=== PATIENT | female | born 1980 | race Hispanic/Latino ===

== ENCOUNTER 2017-07-17 09:32 | Emergency (ER) | payer MEDICAID, MEDICARE ==
--- NOTE | 2017-07-17 10:16 | XRay Report ---
ROUTINE CHEST, TWO VIEWS: HISTORY: Shortness of breath. The trachea, heart, mediastinal contour, lung le and bony thorax are unremarkable. IMPRESSION: Unremarkable chest x-ray.
[2017-07-17 10:18] LABS: Basophils % (Auto) 1.1 % (0.0-1.8); Eosinophils % (Auto) 1.3 % (0.0-4.3); Hemoglobin 11.5 gm/dl (10.1-14.3); Mean Corpuscular HGB Conc 32 % (30-34); Mean Corpuscular Volume 80 fl (79-97); Platelet Count 423 K/mm3 (140-440); Red Blood Count 4.48 M/mm3 (3.65-5.03); Red Cell Distribution Width 16.5 % (13.2-15.2); White Blood Count 10.8 K/mm3 (4.5-11.0)
[2017-07-17 10:22] LABS: Mean Corpuscular Hemoglobin 26 pg (28-32)
[2017-07-17 10:24] LABS: Anion Gap 20 mmol/L; BUN/Creatinine Ratio 24; Blood Urea Nitrogen 19 mg/dL (7-17); Calcium 9.3 mg/dL (8.4-10.2); Carbon Dioxide 22 mmol/L (22-30); Chloride 101.3 mmol/L (98-107); Glucose 88 mg/dL (65-100); Potassium 4.1 mmol/L (3.6-5.0); Sodium 139 mmol/L (137-145)
[2017-07-17 19:50] VITALS: BP 126/84
--- NOTE | 2017-07-17 20:52 | Emergency Department Report ---
ED General Adult HPI - General Chief complaint: Dyspnea/Respdistress Stated complaint: SOB Time Seen by Provider: 07/17/17 20:34 Source: patient, RN notes reviewed Mode of arrival: Ambulatory Limitations: No Limitations - History of Present Illness Initial comments: This is a 37-year-old female, the patient is previously unknown to this provider. The patient endorses no chronic medical issues and no chronic psychiatric issues. She presents to the ER with a complaint of discoloration in her skin, and shortness of breath. The skin discoloration has been present for one week. It is constant and painless, and is not having exacerbating or relieving factors. The shortness of breath has been present for a few days. It is painless. There is no leg pain, there is no leg swelling, no relationships greater than 4 hours, no recent hospital admissions, the patient endorses that she is not , and does not take breath control tablets. No fevers or chills, no chest pain, no abdominal pain, no homicidality or suicidality. -: Gradual Severity scale (0 -10): 0 Consistency: constant Improves with: none Worsens with: none Associated Symptoms: shortness of breath - Related Data Home Medications Medication Instructions Recorded Confirmed Last Taken No Known Home Medications [No 07/17/17 07/17/17 Unknown Reported Home Medications] Allergies Allergy/AdvReac Type Severity Reaction Status Date / Time haloperidol [From Haldol] Allergy Unknown Verified 07/17/17 09:39 Sulfa (Sulfonamide Allergy Shortness Verified 07/17/17 09:39 Antibiotics) of Breath ED Review of Systems ROS: Stated complaint: SOB Other details as noted in HPI Constitutional: malaise Eyes: denies: vision change ENT: denies: epistaxis Respiratory: shortness of breath Cardiovascular: denies: chest pain Gastrointestinal: denies: abdominal pain Genitourinary: denies: dysuria Musculoskeletal: arthralgia Skin: lesions Neurological: weakness Psychiatric: anxiety ED Past Medical Hx - Past Medical History Previous Medical History?: No - Social History Smoking Status: Never Smoker Substance Use Type: None - Medications Home Medications: Home Medications Medication Instructions Recorded Confirmed Last Taken Type No Known Home Medications [No 07/17/17 07/17/17 Unknown History Reported Home Medications] ED Physical Exam - General Limitations: No Limitations, Other (visual acuity intact to finger counting, color perception, reading at a close distance) General appearance: alert, in no apparent distress - Head Head exam: Present: atraumatic, normocephalic - Eye Eye exam: Present: normal appearance, EOMI. Absent: nystagmus - ENT ENT exam: Present: normal exam, normal orophraynx, mucous membranes moist, normal external ear exam - Neck Neck exam: Present: normal inspection, full ROM. Absent: tenderness, meningismus - Respiratory Respiratory exam: Present: normal lung sounds bilaterally. Absent: respiratory distress, wheezes, rales, rhonchi, stridor, chest wall tenderness, accessory muscle use, decreased breath sounds, prolonged expiratory - Cardiovascular Cardiovascular Exam: Present: regular rate, normal rhythm, normal heart sounds. Absent: bradycardia, tachycardia, irregular rhythm, systolic murmur, diastolic murmur, rubs, gallop - GI/Abdominal GI/Abdominal exam: Present: soft, normal bowel sounds. Absent: distended, tenderness, guarding, rebound, rigid, pulsatile mass - Extremities Exam Extremities exam: Present: normal inspection, full ROM, normal capillary refill. Absent: pedal edema, joint swelling, calf tenderness - Back Exam Back exam: Present: normal inspection, full ROM. Absent: tenderness, CVA tenderness (R), CVA tenderness (L), muscle spasm, paraspinal tenderness, vertebral tenderness - Neurological Exam Neurological exam: Present: alert, oriented X3, normal gait, other (Extraocular movements intact. Tongue midline. No facial droop. Facial sensation intact to light touch in the V1, V2, V3 distribution bilaterally. 5 and 5 strength in 4 extremities.. Sensation is intact to light touch in 4 extremities.). Absent : motor sensory deficit - Psychiatric Psychiatric exam: Present: anxious, flat affect - Skin Skin exam: Present: warm, dry, intact, normal color. Absent: rash ED Course Vital Signs 07/17/17 07/17/17 07/17/17 09:39 19:49 19:50 Temperature 99.0 F 98.5 F Pulse Rate 95 H 80 Respiratory 16 18 18 Rate Blood Pressure 145/89 Blood Pressure 126/84 [Right] O2 Sat by Pulse 99 98 98 Oximetry - Reevaluation(s) Reevaluation #1: 07/17/17 20:52 The breast and chest exam are within normal limits with no tenderness, during the examination, this provider is escorted by nurse Melissa Medley Reevaluation #2: 07/17/17 20:53 Patient denies vaginal bleeding, denies hematemesis and bright red blood per rectum the patient reports that she is not . ED Medical Decision Making - Lab Data Result diagrams: 07/17/17 09:53 07/17/17 09:53 Vital Signs 07/17/17 07/17/17 07/17/17 09:39 19:49 19:50 Temperature 99.0 F 98.5 F Pulse Rate 95 H 80 Respiratory 16 18 18 Rate Blood Pressure 145/89 Blood Pressure 126/84 [Right] O2 Sat by Pulse 99 98 98 Oximetry Lab Results 07/17/17 07/17/17 Range/Units 09:53 09:53 WBC 10.8 (4.5-11.0) K/mm3 RBC 4.48 (3.65-5.03) M/mm3 Hgb 11.5 (10.1-14.3) gm/dl Hct 36.0 (30.3-42.9) % MCV 80 (79-97) fl MCH 26 L (28-32) pg MCHC 32 (30-34) % RDW 16.5 H (13.2-15.2) % Plt Count 423 (140-440) K/mm3 Lymph % (Auto) 27.0 (13.4-35.0) % Iron % (Auto) 4.2 (0.0-7.3) % Eos % (Auto) 1.3 (0.0-4.3) % Baso % (Auto) 1.1 (0.0-1.8) % Lymph # 2.9 (1.2-5.4) K/mm3 Iron # 0.5 (0.0-0.8) K/mm3 Eos # 0.1 (0.0-0.4) K/mm3 Baso # 0.1 (0.0-0.1) K/mm3 Seg Neutrophils % 66.4 (40.0-70.0) % Seg Neutrophils # 7.1 (1.8-7.7) K/mm3 Sodium 139 (137-145) mmol/L Potassium 4.1 (3.6-5.0) mmol/L Chloride 101.3 (98-107) mmol/L Carbon Dioxide 22 (22-30) mmol/L Anion Gap 20 mmol/L BUN 19 H (7-17) mg/dL Creatinine 0.8 (0.7-1.2) mg/dL Estimated GFR > 60 ml/min BUN/Creatinine Ratio 24 % Glucose 88 (65-100) mg/dL Calcium 9.3 (8.4-10.2) mg/dL Troponin T < 0.010 (0.00-0.029) ng/mL - EKG Data -: EKG Interpreted by Me - EKG Data 07/17/17 20:49 Sinus, 87 bpm, normal axis, QTC 472 ms, high left ventricular voltage in lead 1 , abnormal EKG, not morphologically consistent with stomach, there is no prior for comparison - Radiology Data Radiology results: report reviewed, image reviewed X-ray the chest is negative for acute disease - Medical Decision Making Differential diagnosis: Pneumonia, anemia, pericardial effusion, anxiety, conversion disorder Assessment and plan: 37-year-old female who complains of shortness of breath for 3 days, and subjective discoloration of her skin. Her skin has some areas of hyperpigmentation, but they do not appear to be superinfected, or cyanotic. The patient reports that she is not , there are no DVT or pulmonary embolus risk factors, she is low risk by well's criteria, she is low risk by JESUS score, she is low risk by heart score, she has no chest pain, EKG not morphologically consistent with STEMI, symptoms present for greater than 8 hours , therefore as per the [employer] clinic policy, myocardial infarction is excluded with 1 set of cardiac enzymes. perc negative The patient has a very bizarre affect, but she is alert and oriented 3, with a GCS of 15, and an anion score of 0, is clinically sober, walks with a steady gait, has not endorsed homicidality or suicidality, does not require 1013. She is not slurring her speech, and there is none appear to be an emergent condition at this time. A bedside cardiac ultrasound demonstrates good gross LV and RV contractility, with no obvious pericardial effusion. The patient is medically suitable to follow-up in outpatient primary care doctor, x-ray of the chest is negative, laboratory studies unremarkable. Critical care attestation.: If time is entered above; I have spent that time in minutes in the direct care of this critically ill patient, excluding procedure time. ED Disposition Clinical Impression: History of dyspnea Disposition: DC-01 TO HOME OR SELFCARE Is pt being admited?: No Does the pt Need Aspirin: No Condition: Stable Instructions: Dyspnea (ED) Additional Instructions: Follow-up with a primary care doctor within the next month. Return to the ER right away with new pain, worsened pain, migration of pain, fevers, chills, lethargy, irritability, projectile vomiting, change in mental status, loss of consciousness, defecating blood, vomiting blood Referrals: PRIMARY CARE, [Primary Care Provider] - 3-5 Days MELANIE PINEDA MD [Staff Physician] - 3-5 Days [facility] [Provider Group] - 3-5 Days
== END 2017-07-17 21:53 | disposition home or self-care (01) ==
LOC: ED 09:32
DX: R06.02 Shortness of breath (principal); L98.8 Other specified disorders of the skin and subcutaneous tissue
CPT/HCPCS: 36415; 71020; 80048; 84484; 85025; 93005; 93010